=== PATIENT | male | born 1975 | race Two or more races ===

== ENCOUNTER 2021-10-20 04:40 | Emergency (ER) | payer SELFPAY ==
[~2021-10-20] VITALS: Ht 157.5 cm; Wt 63.6 kg
--- NOTE | 2021-10-20 05:06 | PHYS DOC ---
General Adult EDM: Chief Complaint: ABDOMINAL PAIN HPI: HPI: 46-year-old male with no significant past medical history, presents to the ED with his , (patient consents to his/her/their knowledge and involvement in pts' medical care), with complaints of epigastric and right-sided upper abdominal pain that started approximately 2 hours ago with associated nausea stating "I feel like I want to vomit and my mouth is dry." Last bowel movement was around the same time-normal brown color. Pain is sharp, constant and nonradiating, started while watching TV. States he had a similar episode of pain 1 week ago that spontaneously resolved. Had eaten limited hyperlinks from wound stop within the past hour. states "we need to stop eating greasy food so late." Denies any trauma or injury. No associated alcohol use or drug use. PSH-appendectomy. (STACEY WATKINS DO) Review of Systems: Review of Systems: Constitutional: Denies fever or chills. [] Eyes: Denies change in visual acuity. [] HENT: Denies nasal congestion or sore throat. [] Respiratory: Denies cough or shortness of breath. [] Cardiovascular: Denies chest pain or edema. [] GI: Denies melena, hematochezia or hematemesis : Denies dysuria or hematuria Musculoskeletal: Denies back pain or flank pain. [] Integument: Denies rash or diaphoresis Neurologic: Denies headache, focal weakness or sensory changes. [] Endocrine: Denies polyuria or polydipsia. [] Lymphatic: Denies swollen glands. [] Psychiatric: Denies depression or anxiety. [] (STACEY WATKINS DO) Heart Score: C/O Chest Pain: No Risk Factors: Risk Factors: DM, Current or recent (<one month) smoker, HTN, HLP, family history of CAD, obesity. Risk Scores: Score 0 - 3: 2.5% MACE over next 6 weeks - Discharge Home Score 4 - 6: 20.3% MACE over next 6 weeks - Admit for Clinical Observation Score 7 - 10: 72.7% MACE over next 6 weeks - Early Invasive Strategies (STACEY WATKINS DO) C/O Chest Pain: No (JACINTO AGUDELO MD) Physical Exam: PE: Constitutional: Shaking in ED stretcher/mildly writhing, HENT: Normocephalic, atraumatic, moist mucous membranes Eyes: EOMI, conjunctiva normal, no discharge. Neck: Normal range of motion, supple, Cardiovascular: S1/2 present, regular rhythm Lungs & Thorax: Speaking in full sentences, bilateral equal chest rise, no tachypnea or increased work of breathing Abdomen: soft, epigastric and right upper quadrant tenderness with no rigidity, no lower abdominal pain Skin: Warm, dry, no erythema, no rash. [] Back: No tenderness, no CVA tenderness. [] Extremities: No tenderness, no cyanosis, no lower extremity edema Neurologic: Alert and oriented X 3, normal motor function, normal sensory function, no focal deficits noted. [] Psychologic: Affect normal, judgement normal, mood normal. [] (STACEY WATKINS DO) EKG: EKG: Sinus rhythm 66 bpm, no axis deviation, normal intervals, no T wave inversion, no ST elevation or ST depression (STACEY WATKINS DO) Radiology/Procedures: Radiology/Procedures: [] (STACEY WATKINS DO) Radiology/Procedures: [facility] [address] [place] [address] IMAGING REPORT Signed PATIENT: KEIRA WESTON AACCOUNT: [id number] : 1975 LOCATION: ER AGE: 46 SEX: M EXAM STATUS: REG ER ORD. PHYSICIAN: JACINTO AGUDELO MD REASON: abd pain PROCEDURE: CT ABD PELV W/ IV CONTRST ONLY CT ABDOMEN+PELVIS W dated 10/20/2021 8:23 AM Indication:Reason: abd pain / Spl. Instructions: iv omni 300 75 mls / History: Comparison: No comparison is available. Technique: CT images were performed using infusion of 75 mL Omnipaque 300. No oral contrast was given. One or more of the following individualized dose reduction techniques were utilized for this examination: 1. Automated exposure control 2. Adjustment of the mA and/or kV according to patient size 3. Use of iterative reconstruction technique Findings: The lung bases are clear. Liver and spleen are homogeneous in density and normal in configuration. There is probably mild fatty infiltration of the liver. The gallbladder was distended at the time of the exam, but no calcified stones are seen and there is no obvious inflammation. Both kidneys enhance with contrast. No mass or obstruction is seen. The adrenal glands are not enlarged. The pancreas appears normal. No retroperitoneal or mesenteric adenopathy is seen. There is no apparent abdominal mass or inflammatory process. There apparently has been an appendectomy performed. Images through the pelvis show no distal ureteral stone or obstruction. The bladder appears normal. No pelvic or inguinal adenopathy is seen. There is no apparent pelvic mass or inflammatory process. IMPRESSION: No acute abnormality is identified. The gallbladder was distended at the time of the exam without visible stones, although prior ultrasound reportedly showed no ncalcified stones present. No other cause for pain is identified. Electronically signed by: Soy Sarkar Jr., MD (10/20/2021 9:20 AM) [facility] DICTATED and SIGNED BY: SOY SARKAR Jr, MD DATE: 10/20/21 [id number] (JACINTO AGUDELO MD) Course & Med Decision Making: Course & Med Decision Making Pertinent Labs and Imaging studies reviewed. (See chart for details) Concern for epigastric and right upper quadrant abdominal pain in the setting of hypokalemia and elevated anion gap. Salicylate test pending. Chest x-ray grossly unremarkable. Troponin within normal limits, EKG with no ischemia. Pepcid, fluids and antiemetics given. Patient is pending right upper quadrant ultrasound. Due to shift change patient was signed out to oncoming physician Dr. Tadeo for further medical evaluation disposition. (STACEY WATKINS DO) Course & Med Decision Making Accepted patient care at shift change. Patient still having epigastric pain, CT ordered. Patient doing better after morphine and CT shows distended gallbladder. Patient doing better and discussed return precautions, patient wants to go home. (JACINTO AGUDELO MD) Dragon Disclaimer: Dragon Disclaimer: This electronic medical record was generated, in whole or in part, using a voice recognition dictation system. (STACEY WATKINS DO) Departure Departure Impression: Primary Impression: Upper abdominal pain Disposition: HOME / SELF CARE / HOMELESS Condition: STABLE Patient Instructions: Cholelithiasis Scripts Dicyclomine Hcl (DICYCLOMINE HCL) 20 Mg Tablet 1 TAB PO TID PRN for ABDOMINAL PAIN for 10 Days, #30 TAB 1 Refill Prov: JACINTO AGUDELO MD 10/20/21 STACEY WATKINS DO Oct 20, 2021 05:06 JACINTO AGUDELO MD Oct 20, 2021 09:38
[2021-10-20 05:23] LABS: BASO % 0 % (0-3); EOS # 0.1 x10^3/uL (0.0-0.7); EOS % 1 % (0-3); HEMOGLOBIN 15.7 g/dL (13.0-17.5); LYMPH # 2.7 x10^3/uL (1.0-4.8); LYMPH % 28 % (24-48); MEAN CORPUSCULAR HEMOGLOBIN 31 pg (25-35); MEAN CORPUSCULAR HGB CONC 35 g/dL (31-37); MEAN CORPUSCULAR VOLUME 88 fL (79-100); MONO # 0.5 x10^3/uL (0.0-1.1); MONO % 5 % (0-9); NEUT # 6.1 x10^3/uL (1.8-7.7); NEUT % 65 % (31-73); PLATELET COUNT 224 x10^3/uL (140-400); RED CELL DISTRIBUTION WIDTH 12.9 % (11.5-14.5); WHITE BLOOD COUNT 9.3 x10^3/uL (4.0-11.0)
[2021-10-20 05:30] LABS: CALCIUM 9.1 mg/dL (8.5-10.1); GFR 79.8; POTASSIUM 3.2 mmol/L (3.5-5.1)
[2021-10-20] MEDS ORDERED: ONDANSETRON PF 4 MG/2 ML VIAL. IVP ONE (05:30)
[2021-10-20] MEDS ORDERED: FAMOTIDINE 20 MG/2 ML VIAL IVP ONE (05:30)
[2021-10-20] MEDS ORDERED: IV NORMAL SALINE 1000ML BAG 1,000 ML IV SCH (05:30)
[2021-10-20 05:36] LABS: DIRECT BILIRUBIN 0.2 mg/dL (0.0-0.2); TOTAL BILIRUBIN 0.6 mg/dL (0.2-1.0); TOTAL PROTEIN 7.9 g/dL (6.4-8.2)
[2021-10-20] MEDS ORDERED: LIDO:MAALOX 1:1 20 ML SINGLE DOSE. SWSW ONE (06:15)
[2021-10-20 06:25] LABS: SALIC 0.5 mg/dL (2.8-20.0)
--- NOTE | 2021-10-20 06:43 | RAD ---
INDICATION : Reason: ruq and epigastric pain;SONO CALLED / Spl. Instructions: / History: COMPARISON: None TECHNIQUE: Multiple ultrasound images obtained through the abdomen in grayscale and color. FINDINGS: Pancreas: Not well seen secondary to overlying bowel gas Liver: Echogenic appearance. Small hypoechoic region adjacent to gallbladder which could be from foca l fatty sparing. Gallbladder: Gallstones are visualized. Distended at time of exam. IVC: Not well seen secondary to overlying structures Common Bile Duct: Not dilated. Right Kidney: No hydronephrosis. IMPRESSION: * Distended gallbladder with some gallstones seen within. * No common bile duct dilation. * Liver is echogenic. Nonspecific but can be seen with fatty infiltration. Electronically signed by: Flaquito Posey MD (10/20/2021 6:41 AM) [id number]
[2021-10-20 06:47] LABS: BARBITURATES NEG (NEG); BENZODIAZEPINES NEG (NEG); CANNABINOIDS NEG (NEG); COCAINE NEG (NEG); METHADONE NEG (NEG); OPIATES NEG (NEG); PHENCYCLIDINE NEG (NEG)
[2021-10-20 06:51] LABS: BILIRUBIN,URINE NEGATIVE (NEG); CLARITY,URINE CLEAR; COLOR,URINE YELLOW; NITRITE,URINE NEGATIVE (NEG); PROTEIN,URINE NEGATIVE (NEG-TRACE); UROBILINOGEN,URINE 0.2 mg/dL (0.2 mg/dL)
[2021-10-20 06:52] LABS: AMPHETAMINE/METHAMPHETAMINE NEG (NEG)
[2021-10-20] MEDS ORDERED: DICYCLOMINE 20 MG/2 ML VIAL. IM ONE (07:15)
[2021-10-20] MEDS ORDERED: MORPHINE SULFATE 4 MG/ML INJ. IV ONE (08:00)
--- NOTE | 2021-10-20 08:28 | RAD ---
PROCEDURE: XR CHEST 1V.10/20/2021 8:25 AM REASON FOR STUDY: Reason: epigastric pain / Spl. Instructions: / History: . COMPARISON: None. FINDINGS: No infiltrate or effusion is seen. Heart size and pulmonary vascularity appear normal. IMPRESSION: No apparent acute abnormality. Electronically signed by: Aries Sarkar Jr., MD (10/20/2021 8:26 AM) [facility]
[2021-10-20] MEDS ORDERED: IOHEXOL 300 MG/ML 100ML VIAL. IV ONE (08:30)
[2021-10-20] MEDS ORDERED: CONTRAST GIVEN. MC PRN (08:30)
[2021-10-20 09:05] LABS: BACTERIA,URINE 0 /HPF (0-FEW); RBC,URINE 0 /HPF (0-2); WBC,URINE 0 /HPF (0-4)
--- NOTE | 2021-10-20 09:22 | RAD ---
CT ABDOMEN+PELVIS W dated 10/20/2021 8:23 AM Indication:Reason: abd pain / Spl. Instructions: iv omni 300 75 mls / History: Comparison: No comparison is available. Technique: CT images were performed using infusion of 75 mL Omnipaque 300. No oral contrast was given . One or more of the following individualized dose reduction techniques were utilized for this examinat ion: 1. Automated exposure control 2. Adjustment of the mA and/or kV according to patient size 3. Use of iterative reconstruction technique Findings: The lung bases are clear. Liver and spleen are homogeneous in density and normal in configuration. Th ere is probably mild fatty infiltration of the liver. The gallbladder was distended at the time of th e exam, but no calcified stones are seen and there is no obvious inflammation. Both kidneys enhance w ith contrast. No mass or obstruction is seen. The adrenal glands are not enlarged. The pancreas appea rs normal. No retroperitoneal or mesenteric adenopathy is seen. There is no apparent abdominal mass o r inflammatory process. There apparently has been an appendectomy performed. Images through the pelvis show no distal ureteral stone or obstruction. The bladder appears normal. N o pelvic or inguinal adenopathy is seen. There is no apparent pelvic mass or inflammatory process. IMPRESSION: No acute abnormality is identified. The gallbladder was distended at the time of the exam without vis ible stones, although prior ultrasound reportedly showed noncalcified stones present. No other cause for pain is identified. Electronically signed by: Aries Sarkar Jr., MD (10/20/2021 9:20 AM) [facility]
[2021-10-20] MEDS ORDERED: DICY20TA PO (09:38)
[2021-10-20 10:13] VITALS: BP 118/79
--- NOTE | 2021-10-20 16:37 | EKG ---
[facility] [address] [place] [address] Test Date: 2021-10-20 Test Time: 05:34:22 Pat Name: KEIRA WESTON Department: Room: Gender: M [employer] Operator: : 1975 Requested By: STACEY WATKINS Order Number: [id number] Reading MD: Asad Pike MD Measurements Intervals [place] Rate: 66 P: 6 PA: 136 QRS: 20 QRSD: 76 T: 44 QT: 410 QTc: 432 Interpretive Statements SINUS RHYTHM Electronically Signed On 10-20-2021 20:22:40 [employer] by Asad Pike MD
== END 2021-10-20 10:13 | disposition home or self-care (01) ==
LOC: ER 04:40
DX: R10.13 Epigastric pain (principal); R11.0 Nausea
CPT/HCPCS: 36415; 71045; 74177; 76705; 80048; 80076; 80307; 80329; 81001; 82550; 83690; 84484; 85025; 93005; 96361; 96372; 96374; 96375; 99285; J0500; J2270; J2405; J3490; J7030; Q9967; 99283; G0480